=== PATIENT | female | born 1985 | race African-American/Black ===

== ENCOUNTER 2016-08-06 01:37 | Inpatient (IN) | payer OTHER ==
[2016-08-06] MEDS ORDERED: ceFOXitin 2 GM IVPREMIX* 2 GM/50 ML BAG ONE ×2 (02:24→02:54)
[2016-08-06] MEDS ORDERED: Sodium Citrate/Citric Acid* 15 ML UDC PO ONE (02:24)
[2016-08-06 03:32] LABS: Hematocrit 38 % (35-47); Hemoglobin 12.1 g/dl (12.0-16.0); Mean Corpuscular HGB Conc 32 g/dl (31-36); Mean Corpuscular Hemoglobin 30 pg (27-31); Mean Corpuscular Volume 94 fL (80-97); Mean Platelet Volume 11 um3 (7.4-10.4); Red Blood Count 4.06 10^6/ul (4.0-5.4); Red Cell Distribution Width 16 % (10.5-15); White Blood Count 5.7 10^3/ul (3.5-10.8)
[2016-08-06] MEDS ORDERED: Morphine PF AMP (0.5MG/ML)* 5 MG/10 ML AMP ONE (03:35)
[2016-08-06] MEDS ORDERED: Phenylephrine IV* 40 MCG/ML 10 ML SYRINGE ONE ×2 (03:37)
[2016-08-06] MEDS ORDERED: OXYTOCIN* 10 UNITS/ML 1 ML VIAL ONE ×2 (04:08→04:28)
[2016-08-06] MEDS ORDERED: EPHEDrine (Pressors)* 50 MG/ML VIAL ONE (04:08)
[2016-08-06] MEDS ORDERED: Ondansetron INJ* 2 MG/ML VIAL ONE (05:20)
[2016-08-06] MEDS ORDERED: Ondansetron INJ* 2 MG/ML VIAL IV PRN (05:20)
[2016-08-06] MEDS ORDERED: Ibuprofen TAB* 600 MG PO PRN (05:20)
[2016-08-06] MEDS ORDERED: Naloxone* 0.4 MG/ML 1 ML VIAL IV PRN (05:20)
[2016-08-06] MEDS ORDERED: oxyCODONE/Acetamin 5/325 MG* TAB PO PRN ×2 (05:20→17:32)
[2016-08-06] MEDS ORDERED: Glycerin ADULT SUPP PR PRN (05:28)
[2016-08-06] MEDS ORDERED: Acetaminophen TAB* 325 MG PO PRN (05:28)
[2016-08-06] MEDS ORDERED: Witch Hazel PAD* JAR TOPICAL PRN (05:28)
[2016-08-06] MEDS ORDERED: Dibucaine 1% 28.35 GM TUBE PR PRN (05:28)
[2016-08-06] MEDS ORDERED: Metoclopramide IV* 5 MG/ML 2 ML VIAL ONE ×2 (06:20→11:15)
--- NOTE | 2016-08-06 06:25 | OP ---
CONTINUATION ADDENDUM NOW INCLUDED ON THIS REPORT DATE OF OPERATION: 08/06/16 - ROOM #[id number]-116 DATE OF : 81 SURGEON: Mariela Delgado MD CARE TRANSITIONS NURSE: Ovidio Hemphill MD ANESTHESIOLOGIST: Reyna Bruce MD ANESTHESIA: Spinal PRE-OP DIAGNOSES: Intrauterine gestation at 37 and 2 weeks gestational age, IVF di-di twin , prior section, and rupture of membranes. POST-OP DIAGNOSES: Intrauterine gestation at 37 and 2 weeks gestational age, IVF di-di twin , prior section, and rupture of membranes. OPERATIVE PROCEDURE: Repeat lower transverse section. ESTIMATED BLOOD LOSS: 800 mL. FLUIDS: Crystalloid. CONTINUATION ADDENDUM: FINDINGS: Baby A, female infant, Apgars of 9 and 9, weight 6 pounds, 2 ounces. Baby B, female , Apgars of 7 and 9, weight 5 pounds, 14 ounces. Normal-appearing placenta, normal- appearing uterus, ovaries, and tubes. COMPLICATIONS: None. DRAINS: Huang catheter. DESCRIPTION OF PROCEDURE: After informed consent was signed, the patient was taken to the operating where she was given spinal anesthesia that was found to be adequate. She was prepped and draped in the dorsal supine position with a leftward tilt. Time-out was performed. A Pfannenstiel skin incision was then made with a scalpel and carried down to the underlying layer of fascia with the scalpel. The scar tissue was excised with Barnes scissors. The fascia was then incised in the midline and the fascial incision extended laterally with a Abrnes scissors. The inferior edge of the fascial incision was grasped with Jon clamps, tented up, and dissected down with sharp dissection. Then, the superior edge of the fascial incision was grasped with Jon clamps, tented up , and dissected down with sharp dissection. The rectus muscles were already . The peritoneum was entered with sharp dissection, with care taken to avoid injury to the bowel and bladder. The incision was extended laterally with sharp dissection. The bladder blade was then inserted and a transverse incision was made in the lower uterine segment with the scalpel. The incision was extended superiorly and inferiorly with blunt pressure. Baby A was found in vertex presentation, was brought up out of the pelvis and delivered with fundal pressure followed by the shoulders and the rest of the body. Baby B was originally in transverse presentation, fell into a breech presentation, the feet were grasped and delivered easily followed by the buttocks, the abdomen, the arms were rotated inwardly and delivered, and the head was delivered in a flexed position. After each baby was delivered, the cord was milked towards the baby, clamped x2 and cut, and the babies were handed to the audio specialist. The placentas were delivered manually. Cord bloods were collected. The uterus was then cleared of clots and debris. The uterine incision was closed with 0 Vicryl in a running locked fashion with a second layer of suture imbricating the first. The abdomen was irrigated. Good hemostasis was noted on the uterine incision. The peritoneum was then closed with 3-0 chromic in a running unlocked fashion. The fascia was closed with 0 Vicryl in a running unlocked fashion. All the layers were noted to be hemostatic prior to closure. A subcuticular layer was irrigated and the skin was then closed with 4-0 Monocryl in a running subcuticular fashion. Incision was cleaned. Mastisol and Steri- Strips were placed and a dressing was placed. The patient was moved to the stretcher and taken to the recovery room in stable condition. All counts were correct. [id number]/[facility] #: [id number] Ruddy- [id number]/[facility] #: [id number] PAWEL
[2016-08-06] MEDS: oxyCODONE/Acetamin 5/325 MG* TAB PO PRN ×3 (07:04→23:49)
[2016-08-06] MEDS: Ibuprofen TAB* 600 MG PO PRN ×3 (09:08→20:57)
[2016-08-06] MEDS: Simethicone TAB* 80 MG TAB.CHEW PO SCH ×4 (09:14→20:57)
[2016-08-06] MEDS: Docusate CAP* 100 MG PO SCH ×3 (09:14→20:57)
[2016-08-06] MEDS ORDERED: oxyCODONE/Acetamin 5/325 MG* TAB ONE ×2 (11:52→16:52)
[2016-08-06] MEDS ORDERED: Zolpidem TAB* 5 MG PO PRN (21:30)
--- NOTE | 2016-08-07 00:32 | OP ---
OPERATIVE REPORT:* ADDENDUM: FINDINGS: Baby A, female , 's of 9 and 9, weight 6 pounds, 2 ounces. Baby B, female infant, 's of 7 and 9, weight 5 pounds, 14 ounces. Normal- appearing placenta, normal-appearing uterus, ovaries, and tubes. COMPLICATIONS: None. DRAINS: Huang catheter. DESCRIPTION OF PROCEDURE: After informed consent was signed, the patient was taken to the operating where she was given spinal anesthesia that was found to be adequate. She was prepped and draped in the dorsal supine position with a leftward tilt. Time-out was performed. A Pfannenstiel skin incision was then made with a scalpel and carried down to the underlying layer of fascia with the scalpel. The scar tissue was excised with Barnes scissors. The fascia was then incised in the midline and the fascial incision extended laterally with a Barnes scissors. The inferior edge of the fascial incision was grasped with Jon clamps, tented up, and dissected down with sharp dissection. Then, the superior edge of the fascial incision was grasped with Jon clamps, tented up , and dissected down with sharp dissection. The rectus muscles were already . The peritoneum was entered with sharp dissection, was carried to avoid injury to the bowel and bladder. The incision was extended laterally with sharp dissection. The bladder blade was then inserted and a transverse incision was made in the lower uterine segment with the scalpel. The incision was extended superiorly and inferiorly with blunt pressure. Baby A was found in vertex presentation, was brought up out of the pelvis and delivered with fundal pressure followed by the shoulders and the rest of the body. Baby B was originally in transverse presentation, fell into a breech presentation, the feet were grasped and delivered easily followed by the buttocks, the abdomen, the arms were rotated inwardly and delivered, and the head was delivered in a flexed position. After each baby was delivered, the cord was milked towards the baby, clamped x2 and cut, and the babies were handed to the medical lab tech instructor. The placentas were delivered manually. Cord bloods were collected. The uterus was then cleared of clots and debris. The uterine incision was closed with 0 Vicryl in a running locked fashion with a second layer of suture imbricating the first. The abdomen was irrigated. Good hemostasis was noted on the uterine incision. The peritoneum was then closed with 3-0 chromic in a running unlocked fashion. The fascia was closed with 0 Vicryl in a running unlocked fashion. All the layers were noted to be hemostatic prior to closure. A subcuticular layer was irrigated and the skin was then closed with 4-0 Monocryl in a running subcuticular fashion. Incision was cleaned. Mastisol and Steri- Strips were placed and a dressing was placed. The patient was moved to the stretcher and taken to the recovery room in stable condition. All counts were correct. [id number]/[facility] #: [id number] [facility]
[2016-08-07] MEDS: Ibuprofen TAB* 600 MG PO PRN ×5 (04:04→22:18)
[2016-08-07] MEDS: oxyCODONE/Acetamin 5/325 MG* TAB PO PRN ×5 (05:50→22:18)
[2016-08-07] MEDS: Docusate CAP* 100 MG PO SCH ×3 (08:58→22:18)
[2016-08-07] MEDS: Simethicone TAB* 80 MG TAB.CHEW PO SCH ×4 (08:58→22:18)
[2016-08-07] MEDS ORDERED: Ferrous Gluconate TAB* 324 MG TAB PO SCH (09:00)
[2016-08-07 09:32] LABS: Hematocrit 32 % (35-47); Hemoglobin 10.5 g/dl (12.0-16.0); Mean Corpuscular HGB Conc 32 g/dl (31-36); Mean Corpuscular Hemoglobin 30 pg (27-31); Mean Corpuscular Volume 93 fL (80-97); Mean Platelet Volume 11 um3 (7.4-10.4); Red Blood Count 3.47 10^6/ul (4.0-5.4); Red Cell Distribution Width 16 % (10.5-15); White Blood Count 11.3 10^3/ul (3.5-10.8)
[2016-08-08] MEDS: oxyCODONE/Acetamin 5/325 MG* TAB PO PRN ×4 (02:25→22:50)
[2016-08-08] MEDS: Ibuprofen TAB* 600 MG PO PRN ×4 (04:08→22:49)
[2016-08-08] MEDS: Docusate CAP* 100 MG PO SCH ×3 (08:17→21:28)
[2016-08-08] MEDS: Simethicone TAB* 80 MG TAB.CHEW PO SCH ×4 (08:18→21:28)
[2016-08-08 21:17] VITALS: BP 130/61
[2016-08-09] MEDS: Ibuprofen TAB* 600 MG PO PRN (08:42)
[2016-08-09] MEDS: oxyCODONE/Acetamin 5/325 MG* TAB PO PRN (08:43)
[2016-08-09] MEDS: Simethicone TAB* 80 MG TAB.CHEW PO SCH (08:44)
[2016-08-09] MEDS: Docusate CAP* 100 MG PO SCH (08:44)
== END 2016-08-09 10:49 | disposition home or self-care (01) | DRG 540 ==
LOC: MCHOBOUT 01:37 → MCHOB 02:24
PROVIDERS: ADMIT Obstetrics & Gynecology; ATTEND Obstetrics & Gynecology
PROC: 10D00Z1 Extraction of Products of Conception, Low, Open Approach (ICD-10-PCS; principal; 2016-08-06 03:44)
DX: O34.211 Maternal care for low transverse scar from previous cesarean delivery (principal); O30.041 Twin pregnancy, dichorionic/diamniotic, first trimester; Z3A.37 37 weeks gestation of pregnancy; Z37.2 Twins, both liveborn
CPT/HCPCS: 36415; 85025; 86850; 86900; 86901; 88307; A9270-GY; J0694; J2405; J2590; J2765